=== PATIENT | female | born 1970 | race African-American/Black ===

== ENCOUNTER 2017-08-28 07:59 | Day surgery (SDC) | payer BC ==
[2017-08-26 15:53] LABS: PLATELET COUNT 246 x10^3mcL (130-400)
[2017-08-26 15:57] LABS: RED CELL DISTRIBUTION WIDTH 14.8 % (11.5-14.5)
[2017-08-26 16:14] LABS: ALBUMIN 3.5 g/dL (3.4-5.0); BILIRUBIN TOTAL 0.4 mg/dL (0.20-1.00); CALCIUM 8.6 mg/dL (8.5-10.1); CARBON DIOXIDE 33.2 mmol/L (21-32); CREATININE SERUM 1.2 mg/dL (0.6-1.0); POTASSIUM SERUM 3.5 mmol/L (3.5-5.1); TOTAL PROTEIN, SERUM 7.3 g/dL (6.4-8.2)
[2017-08-26 16:44] LABS: BAND NEUTROPHIL 0 % (0-10); BASOPHIL 0 % (0-2); MONOCYTE 3 % (0-7); SEGMENTED NEUTROPHILS 65 % (37-75)
[2017-08-26 16:45] LABS: rbc morphology (normal/abnorm) ABNORMAL (NORMAL)
[~2017-08-28] VITALS: Ht 160 cm; Wt 94.8 kg
[2017-08-28 08:08] VITALS: BP 170/96
[2017-08-28 13:50] VITALS: BP 176/90
== END 2017-08-28 13:50 | disposition home or self-care (01) ==
LOC: MA 07:59 → OR 11:00 → MA 13:50
PROVIDERS: Surgery
PROC: 0HBT0ZX Excision of Right Breast, Open Approach, Diagnostic (ICD-10-PCS; principal; 2017-08-28 11:00)
DX: D24.1 Benign neoplasm of right breast (principal); N60.11 Diffuse cystic mastopathy of right breast; I10 Essential (primary) hypertension; E66.9 Obesity, unspecified; Z68.38 Body mass index [BMI] 38.0-38.9, adult; Z79.82 Long term (current) use of aspirin
CPT/HCPCS: 76641; J0690; J1170; J2001; J2250; J2704; J3010; J3490; J7120; Q0092